=== PATIENT | female | born 2000 | race Caucasian/White ===

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

== ENCOUNTER 2024-03-02 10:15 | Emergency (ER) | payer OTHER, SELFPAY ==
[2024-03-02 10:21] VITALS: BP 115/82; PULSE 67; RESP 19; TEMP 36.6; O2SAT 100
--- NOTE | 2024-03-02 10:46 | ED_ITS ---
HPI - Ear Problem General Chief complaint: Ear Stated complaint: WEIRD SOUND IN EAR Time Seen by Provider: 03/02/24 10:46 Source: patient, RN notes reviewed and old records reviewed Mode of arrival: ambulatory Limitations: no limitations History of Present Illness HPI Narrative: 23-year-old female who presents to [facility] with complaints of 2 day history of muffled hearing, having funny sound in her right ear,feels like water in her ear,denies any drainage from her ear.. Patient reports that she has not had any nasal congestion or any cough, denies any known fevers, chills or sweats. Patient reports that she does not use ear buds or Q-tips to her ears. MD Complaint: ear pain Location: right ear Duration: constant Severity: moderate Discharge from ear: Reports no Treatment prior to arrival: none Related Data Allergies Allergy/AdvReac Type Severity Reaction Status Date / Time No Known Allergies Allergy Verified 03/02/24 10:46 Review of Systems 2 Review of Systems: CONSTITUTIONAL: Denies malaise, chills, sweats, or fever. EYES: Denies visual changes, redness, or discharge. ENT: Reports no rhinorrhea, congestion, sinus pain,states right otalgia and no sore throat. CARDIOVASCULAR: Denies chest pain, palpitations, or edema. RESPIRATORY: Reports no cough.? Denies dyspnea. GASTROINTESTINAL: Denies abdominal pain, nausea, vomiting, diarrhea SKIN: Denies rash or itching. MUSCULOSKELETAL: Denies myalgia. NEUROLOGIC: Denies headache. All systems reviewed & are unremarkable except as noted in HPI and below PMFSH Past Medical History Medical History Healthy adolescent Social History Social History Smoking status: Never smoker Alcohol intake: never Substance use: never Comments At time of signature, agree with nursing past medical, surgical, social and family history. There is no relevant family history pertinent to the presenting complaint Exam Narrative: GENERAL: Well-appearing, well-nourished, and in no acute distress. HEAD: Normocephalic EYES: PERRLA, conjunctivae clear ENT: Nares clear, turbinates edematous and erythematous, clear discharge. Mucous membranes moist.Right TM red, Left TM pearly castaneda with dull light reflex ; no tragal tenderness. Oropharynx erythematous without lesions. Tonsils not enlarged and without exudate, no drooling, no hoarseness, no trismus, uvula midline. NECK: Supple. No lymphadenopathy CHEST: Clear to auscultation, breath sounds equal. No wheezing, rhonchi, rales, or stridor. No respiratory distress, speaks in full sentences.SAO2 100% on room air. HEART: Regular rate and rhythm. No murmur heard. SKIN: Warm, dry, no rash. NEURO: Alert and oriented x3. PSYCH: Normal mood and affect Course Course Emergency Course: Patient is aware of diagnosis, understands and agrees to treatment plan.? Anticipatory guidance given.? Patient agrees to follow-up as directed and is aware of reasons to seek care at the emergency department. Portions of this record may have been created with voice recognition software Level of Care: Express Care Visit Vital Signs Vital signs: Vital Signs Temperature 36.6 C 03/02/24 10:21 Pulse Rate 67 03/02/24 10:21 Respiratory Rate 19 03/02/24 10:21 Blood Pressure 115/82 03/02/24 10:21 Pulse Oximetry 100 03/02/24 10:21 Oxygen Delivery Room Air 03/02/24 10:21 Temperature 36.6 C 03/02/24 10:21 Pulse Rate 67 03/02/24 10:21 Respiratory Rate 19 03/02/24 10:21 Blood Pressure 115/82 03/02/24 10:21 Pulse Oximetry 100 03/02/24 10:21 Oxygen Delivery Room Air 03/02/24 10:21 Reviewed Medical Decision Making Differential Diagnosis Differential Diagnosis: URI. otitis media,viral infection, sinusitis Medical Records Medical records reviewed: Yes I reviewed the external patient's medical records. Vital Signs Vital Signs: Vital Signs Temperature 36.6 C 03/02/24 10:21 Pulse Rate 67 03/02/24 10:21 Respiratory Rate 19 03/02/24 10:21 Blood Pressure 115/82 03/02/24 10:21 Pulse Oximetry 100 03/02/24 10:21 Oxygen Delivery Room Air 03/02/24 10:21 Temperature 36.6 C 03/02/24 10:21 Pulse Rate 67 03/02/24 10:21 Respiratory Rate 19 03/02/24 10:21 Blood Pressure 115/82 03/02/24 10:21 Pulse Oximetry 100 03/02/24 10:21 Oxygen Delivery Room Air 03/02/24 10:21 reviewed Critical Care Time Critical Care Time Critical Care Time: No Discharge Plan Discharge Clinical Impression: Otitis media Qualifiers: Otitis media type: serous Chronicity: acute Laterality: right Recurrence: non- recurrent Qualified Code(s): H65.01 - Acute serous otitis media, right ear Patient Disposition: Home, Self-Care Condition: Stable Instructions: Antibiotic Form, Ear Infection (GEN) Additional Instructions: Increase fluids especially juices and water [id number] cough and cold medicine of your choice for your symptoms Zyrtec Claritin or Dannielle daily include plain Sudafed 1 in a.m. and 1 in p.m. heat to the face 20-30 minutes 4-6 times a day for pain Salt water gargles, throat lozenges or throat sprays as desired Antibiotic as directed--finished the medication Tylenol or ibuprofen for any fever pain If your symptoms persist, change or worsen significantly before you can contact your personal physician then please, without delay, go to the emergency department for further evaluation. Follow-up with PCP in 7-10 days or sooner if needed Prescriptions: New amoxicillin 875 mg tablet 875 mg PO Q12H Qty: 20 0RF Rx Instructions: take all of prescription Follow-up/Referrals: Zack,Corinne [Other] Time of Disposition: 10:55 Quality [place] Coma Scale Eyes: Open Verbal: Oriented and Alert Motor: Follows Commands [place] Coma Total Score: 15
== END 2024-03-02 10:59 | disposition home or self-care (01) ==
PROVIDERS: Emergency Provider Registered Nurse
DX: H65.01 Acute serous otitis media, right ear (principal)
CPT/HCPCS: 99213; G0463